=== PATIENT | female | born 1970 | race Caucasian/White ===

== ENCOUNTER → 2018-09-17 | Outpatient (CLI) | payer BC, OTHER ==
[2018-09-17 09:07] LABS: HEMATOCRIT 44.3 % (37.0-47.0); HEMOGLOBIN 14.8 gm/dL (12.0-15.0); MCH 30.5 pg (26.0-34.0); MCHC 33.5 g/dL (28.0-37.0); MCV 91.1 fL (80.0-100.0); RBC 4.86 mil/uL (4.20-5.00); RDW 13.9 % (10.5-14.5); WBC 6.8 thou/uL (4.0-11.0)
[2018-09-17 09:30] LABS: ALBUMIN 3.7 g/dL (3.4-5.0); CREATININE 0.8 mg/dL (0.6-1.0); POTASSIUM 4.4 mmol/L (3.5-5.1); TOTAL BILIRUBIN 0.3 mg/dL (<0.1-1.0); TOTAL PROTEIN 7.9 g/dL (6.4-8.2)
== END ==
LOC: LABMALL 08:26 → CAT 08:26
PROVIDERS: Internal Medicine Cardiovascular Disease
DX: I48.91 Unspecified atrial fibrillation (principal); M47.814 Spondylosis without myelopathy or radiculopathy, thoracic region

== ENCOUNTER → 2018-09-20 | Outpatient (CLI) | payer BC, OTHER ==
[~2018-09-20] VITALS: Ht 165.1 cm; Wt 99.8 kg
[~2018-09-20] MED LIST: ASPIR 8181 MG PO; FLECAINIDE ACET50 M1 PO; PRADAXA150 MG PO; TOPROL XL25 MG PO
--- NOTE | ~2018-09-20 | P ---
[facility] [address] [place] [address] PROCEDURE REPORT Name: ZAHRA CHOPRA Room #: [facility].#: [id number] Admission: 09/20/18 Attend Phys: Gustavo Ray MD Discharge: Date of : 70 Report #: [id number] THIS REPORT FOR: //name// CC: Ulises CASTILLO PREOPERATIVE DIAGNOSES: 1. Paroxysmal atrial fibrillation. 2. Supraventricular tachycardia. POSTOPERATIVE DIAGNOSES: 1. Typical atrioventricular tanika reentrant tachycardia. 2. Atrial fibrillation. PROCEDURES PERFORMED: 1. SVT ablation, CPT code 08836. 2. EP left atrial pacing and recording, CPT code 72144. 3. 3D mapping, CPT code 13545. HISTORY OF PRESENT ILLNESS: The patient is a 48-year-old with a longstanding history of palpitations who recently wore a cdl service technician, which showed what appeared to be AV tanika reentrant tachycardia as well as atrial fibrillation. It appeared that likely she was having atrial fibrillation that was being triggered by the AVNRT. She is here for EP study and ablation of SVT. If we cannot induce any SVT, then we are prepared to proceed with an AFib ablation. ANESTHESIA: The patient underwent MAC anesthesia with no anesthesia related complications. DESCRIPTION OF PROCEDURE: The patient underwent informed consent. We discussed the details of the procedure including the risk, which include but not limited to bleeding, vascular damage, cardiac perforation, stroke, [place] as well as damage to the levelock conduction system requiring a permanent pacemaker. She understood these risks and was willing to proceed. The patient was brought to the EP laboratory in a fasting and sedated state and prepped and draped in a sterile fashion. I obtained access to the bilateral femoral veins placing an 8 and 6-Guinean short sheath in the right femoral vein and 6 and 7-[place] short sheath in the left femoral vein. This was done performing the modified Seldinger technique. Next, 3 quadripolar catheters were placed at the HRA, His, and RV positions and a decapolar catheter was placed into the coronary sinus with ease. Of note, with catheter manipulation into the heart, the patient went into atrial fibrillation with rapid ventricular response, requiring a 200 joule synchronized cardioversion with scientologist of sinus rhythm. In sinus rhythm, her sinus cycle length was 950 milliseconds, PA interval was 170 milliseconds, QRS duration was 95 milliseconds, QT interval was [facility] [address] [address] PROCEDURE REPORT Name: ZAHRA CHOPRA Room #: [facility]#: [id number] Admission: 09/20/18 Attend Phys: Gustavo Ray MD Discharge: Date of : 70 Report #: [id number] 400 milliseconds, AH interval was 83 milliseconds, and her HV interval was 50 milliseconds. Next pacing was performed from the right and left atrium. Next, atrial pacing was performed and the patient went into a supraventricular tachycardia with a tachycardia cycle length of 380 milliseconds and the septal VA time of 35 milliseconds, which looked to be consistent with a typical AV tanika reentrant tachycardia and this quickly degenerated into atrial fibrillation. A 200 joule cardioversion was performed with scientologist of sinus rhythm. Next, ventricular pacing was performed and VA block was noted to be less than 270 milliseconds and with ventricular pacing, the patient degenerated into atrial fibrillation. A 200 joules cardioversion was again performed. Next, a single ventricular extrastimuli were delivered and VA conduction was both midline and decremental nothing to suggest an accessory pathway. Again with single ventricular extrastimuli, the patient went into atrial fibrillation and a 200 joule cardioversion was performed again. Next, I performed atrial pacing and the patient went back into AVNRT, which would last about 10-20 seconds and then she would go into atrial fibrillation again and a 200 joule cardioversion restored sinus rhythm. With single atrial extrastimuli, I induced AVNRT with a single extrastimuli at 340 milliseconds at a [address] cycle length. Again, this AVNRT would quickly degenerate into atrial fibrillation. There was always a consistent AH jump with a septal VA time of 35 milliseconds and an activation sequence consistent with AV tanika reentry tachycardia. Again, the patient underwent another cardioversion. As such, a diagnosis of typical AV tanika reentrant tachycardia was made. As such, I exchanged my HRA catheter and sheath for a 4 mm ablation catheter and SR0 sheath. I performed multiple slow pathway howard, which resulted in nice slow junctionals. There was no prior to ablation a detailed 3D geometry of the right atrium with specific emphasis of the His bundle, slow pathway region and coronary sinus ostium was created. POST-ABLATION FINDINGS: Post-ablation, I performed atrial burst pacing and we could not induce AVNRT anymore. AV tanika ERP was now found at 270 milliseconds at a [address] cycle length. There were rare single AV tanika echoes. With atrial pacing for a period of 30 minutes, I could not induce any more supraventricular tachycardia and therefore, I could not induce atrial fibrillation either. I did perform single ventricular extrastimuli and these would result in induction of atrial fibrillation. Again, there was no suggestion of an accessory pathway as all conduction appeared to be midline and decremental. I performed another cardioversion and no further testing was performed. Post-ablation, the patient was in sinus rhythm with a sinus cycle length of 695 milliseconds, PA interval 160 milliseconds, QRS duration 95 milliseconds, QT interval 380 milliseconds, AH interval 105 milliseconds, and HV interval 37 milliseconds. As such, all catheters and sheaths were pulled. Hemostasis obtained and the patient awoke neurologically and hemodynamically [facility] [address] [place] [address] PROCEDURE REPORT Name: ZAHRA CHOPRA Room #: [facility].#: [id number] Admission: 09/20/18 Attend Phys: Gustavo Ray MD Discharge: Date of : 70 Report #: [id number] intact with no complications. CONCLUSIONS: 1. Successful ablation of typical AV tanika reentrant tachycardia rendered noninducible. 2. Evidence of AVNRT that would degenerate into atrial fibrillation. 3. Easily inducible atrial fibrillation prior to ablation, but could no longer induce this with atrial pacing maneuvers post-ablation. 4. Normal SA tanika function. 5. Normal AV tanika function. 6. Normal His-Purkinje function. 7. No evidence of an accessory pathway mediated tachycardia. <ELECTRONICALLY SIGNED> By: Gustavo Ray MD 10/01/18 [id number] Gustavo Ray MD /nt
[2018-09-20 07:11] VITALS: BP 104/65
[2018-09-20 07:33] LABS: ABSOLUTE NEUTROPHILS 3.3 thou/uL (1.4-8.2); BASOPHILS 1.1 % (0.0-2.0); EOSINOPHILS 1.5 % (0.0-3.0); HEMATOCRIT 41.4 % (37.0-47.0); LYMPHOCYTES 32.9 % (24.0-44.0); MCH 30.7 pg (26.0-34.0); MCHC 33.8 g/dL (28.0-37.0); MCV 90.7 fL (80.0-100.0); MONOCYTES 8.6 % (1.0-8.0); PLATELET COUNT 253 thou/uL (150-400); POLYS 55.9 % (36.0-66.0); RBC 4.56 mil/uL (4.20-5.00); RDW 13.6 % (10.5-14.5); WBC 5.8 thou/uL (4.0-11.0)
[2018-09-20 07:37] LABS: CALCIUM 9.4 mg/dL (8.5-10.1); CREATININE 0.7 mg/dL (0.6-1.0); POTASSIUM 3.9 mmol/L (3.5-5.1)
[2018-09-20 07:43] LABS: ALBUMIN 3.5 g/dL (3.4-5.0); TOTAL BILIRUBIN 0.3 mg/dL (<0.1-1.0); TOTAL PROTEIN 7.8 g/dL (6.4-8.2)
[2018-09-20 07:48] LABS: APTT 30.2 Seconds (24.5-32.8); PROTIME 10.7 Seconds (9.3-11.4)
== END | disposition home or self-care (01) ==
LOC: CATH 06:55
PROVIDERS: Internal Medicine Cardiovascular Disease
DX: I47.1 Supraventricular tachycardia (principal); I48.0 Paroxysmal atrial fibrillation; K75.9 Inflammatory liver disease, unspecified; Z79.01 Long term (current) use of anticoagulants; Z90.710 Acquired absence of both cervix and uterus; Z98.890 Other specified postprocedural states; Z87.891 Personal history of nicotine dependence; Z79.82 Long term (current) use of aspirin; Z79.899 Other long term (current) drug therapy
CPT/HCPCS: 62110; 62900; 70005